=== PATIENT | female | born 1995 | race American Indian/Alaskan Native ===

== ENCOUNTER 2016-05-01 16:59 | Outpatient (CLI) | payer MEDICAID ==
[2016-05-01 18:30] VITALS: BP 103/57
[2016-05-01] MEDS ORDERED: LACTATED RINGERS 1,000 ML IV ONE ×2 (19:16→20:00)
[2016-05-01 19:37] LABS: Bacteria,Urine 2+ /HPF (Negative); Bilirubin,Urine NEG (Negative); Blood,Urine NEG (Negative); Ketones,Urine 20 mg/dL (Negative); Leukocyte Esterase,Urine TR (Negative); Mucus,Urine FEW /HPF; Nitrite,Urine NEG (Negative); Protein,Urine <15 mg/dL mg/dL (Negative)
[2016-05-01 20:01] LABS: Basophils % (Auto) 0.3 % (0.0-1.8); Eosinophils % (Auto) 0.1 % (0.0-4.3); Hematocrit 35.9 % (30.3-42.9); Hemoglobin 11.2 gm/dl (10.1-14.3); Mean Corpuscular HGB Conc 31 % (30-34); Mean Corpuscular Volume 80 fl (79-97); Platelet Count 162 K/mm3 (140-440); Red Blood Count 4.52 M/mm3 (3.65-5.03); Red Cell Distribution Width 15.1 % (13.2-15.2); White Blood Count 8.7 K/mm3 (4.5-11.0)
[2016-05-01 20:02] LABS: Mean Corpuscular Hemoglobin 25 pg (28-32)
== END 2016-05-01 20:40 | disposition home or self-care (01) ==
LOC: TRG 16:59 → LD 17:00 → TRG 20:40
PROVIDERS: ATTEND Obstetrics & Gynecology
DX: O47.02 False labor before 37 completed weeks of gestation, second trimester (principal); Z3A.20 20 weeks gestation of pregnancy
CPT/HCPCS: 36415; 81001; 85025; 96360; J7120; 82962

== ENCOUNTER 2016-08-26 19:18 | Outpatient (CLI) | payer MEDICAID ==
[2016-08-26 19:40] VITALS: BP 102/61
[2016-08-26] MEDS ORDERED: LACTATED RINGERS 1,000 ML ONE (20:15)
[2016-08-26 20:48] LABS: Bilirubin,Urine NEG (Negative); Blood,Urine NEG (Negative); Ketones,Urine NEG (Negative); Leukocyte Esterase,Urine SM (Negative); Mucus,Urine 3+ /HPF; Nitrite,Urine NEG (Negative); Protein,Urine <15 mg/dL mg/dL (Negative); Urobilinogen,Urine < 2.0 mg/dL (<2.0)
[2016-08-26] MEDS ORDERED: LACTATED RINGERS 1,000 ML IV SCH (21:00)
[2016-08-26] MEDS ORDERED: VISTARIL PO ONE (21:25)
== END 2016-08-26 21:28 | disposition home or self-care (01) ==
LOC: TRG 19:18
PROVIDERS: ATTEND Obstetrics & Gynecology
DX: Z34.93 Encounter for supervision of normal pregnancy, unspecified, third trimester (principal); Z3A.37 37 weeks gestation of pregnancy
CPT/HCPCS: 81001; 96360; J7120; Q0177

== ENCOUNTER 2016-09-06 11:25 | Outpatient (CLI) | payer MEDICAID ==
[2016-09-06 11:56] VITALS: BP 110/70
--- NOTE | 2016-09-06 14:00 | Ultrasound Report ---
BIOPHYSICAL PROFILE: 09/06/16 11:25:00 CLINICAL: Well Being FINDINGS: The biophysical profile was scored as followin - breathing movements 2 - movements 2 - posture and tone 2 - Qualitative amniotic fluid volume 8 - TOTAL SCORE OF POSSIBLE 8 Heart Rate (bpm) = 143 IMPRESSION: Normal study
--- NOTE | 2016-09-06 14:01 | Ultrasound Report ---
OB ULTRASOUND LIMITED: 09/06/16 CLINICAL: well being. FINDINGS: Gestation: Zhang Position: Cephalic. Heart Rate: 136 BPM IMPRESSION: Single live intrauterine fetus 38 weeks, 5 daysbased on clinical dating. EDC based on clinical dating is 09/15/16
[2016-09-06] MEDS ORDERED: VISTARIL PO ONE (14:25)
== END 2016-09-06 14:38 | disposition home or self-care (01) ==
LOC: TRG 11:25
PROVIDERS: ATTEND Obstetrics & Gynecology
DX: O47.03 False labor before 37 completed weeks of gestation, third trimester (principal); Z3A.38 38 weeks gestation of pregnancy
CPT/HCPCS: 59025; 76815; 76819; Q0177

== ENCOUNTER 2016-09-09 05:43 | Outpatient (CLI) | payer MEDICAID ==
[2016-09-09] MEDS ORDERED: LACTATED RINGERS 1,000 ML IV ONE (08:00)
[2016-09-09] MEDS ORDERED: STADOL IV PRN (08:00)
[2016-09-09 08:26] LABS: Urine Drugs of Abuse Note Disclamer
[2016-09-09 08:27] VITALS: BP 121/59
== END 2016-09-09 09:33 | disposition home or self-care (01) ==
LOC: TRG 05:43
PROVIDERS: ATTEND Obstetrics & Gynecology
DX: Z34.93 Encounter for supervision of normal pregnancy, unspecified, third trimester (principal); Z3A.39 39 weeks gestation of pregnancy
CPT/HCPCS: 59025; 80307; 96360; 96374; J0595; J7120

== ENCOUNTER 2016-09-09 11:57 | Inpatient (IN) | payer MEDICAID ==
[2016-09-09] MEDS ORDERED: SUBLIMAZE ONE (12:19)
[2016-09-09] MEDS ORDERED: LACTATED RINGERS 1,000 ML ONE ×2 (12:19)
[2016-09-09] MEDS ORDERED: POLYCILLIN/NS 2 GM/100 ML 2 GM/100 ML BAG IV ONE ×2 (12:19→12:41)
[2016-09-09] MEDS ORDERED: ePHEDrine SULFATE IV PRN ×2 (12:41→14:19)
[2016-09-09] MEDS ORDERED: MINERAL OIL PO PRN (12:41)
[2016-09-09] MEDS ORDERED: BRETHINE IVP PRN (12:41)
[2016-09-09] MEDS ORDERED: SUBLIMAZE IV PRN (12:41)
[2016-09-09] MEDS ORDERED: BRETHINE SUB-Q PRN (12:41)
[2016-09-09] MEDS ORDERED: STADOL IV PRN (12:41)
[2016-09-09] MEDS ORDERED: XYLOCAINE 2% INFILTRATI ONE (12:41)
[2016-09-09 12:50] LABS: Hematocrit 38.8 % (30.3-42.9); Hemoglobin 12.6 gm/dl (10.1-14.3); Mean Corpuscular HGB Conc 33 % (30-34); Mean Corpuscular Volume 80 fl (79-97); Platelet Count 262 K/mm3 (140-440); Red Blood Count 4.88 M/mm3 (3.65-5.03); White Blood Count 8.5 K/mm3 (4.5-11.0)
[2016-09-09 12:56] LABS: Mean Corpuscular Hemoglobin 26 pg (28-32)
[2016-09-09] MEDS ORDERED: PITOCin/NS 30 UNIT/500ML 30 UNITS/500 ML BAG IV SCH (13:00)
[2016-09-09] MEDS ORDERED: LACTATED RINGERS 1,000 ML IV SCH (13:00)
[2016-09-09] MEDS ORDERED: PITOCin/NS 20 UNIT/1000ML DRIP 20 UNITS/1,000 ML BAG IV SCH (13:00)
--- NOTE | 2016-09-09 13:14 | History and Physical Report ---
History of Present Illness Date of examination: 09/09/16 Date of admission: 09/09/16 11:57 Chief complaint: labor History of present illness: 21 yo @ 39.2 weeks presented to labor and delivery for active labor. Pt of [facility] since 8 weeks gestation, Course complicated by repeated presentations to triage and office for pain, anemia, and GBS positive. Past History Past Medical History: other (PTSD, depression) Past Surgical History: no surgical history Family/Genetic History: diabetes, hypertension Social history: smoking, full code. denies: prescription drug abuse, IV drug use - Obstetrical History Expected Date of Delivery: 09/14/16 Actual Gestation: 39 Week(s) 2 Day(s) : 1 Para: 0 Hx # Term Pregnancies: 0 Number of Pregnancies: 0 Spontaneous Abortions: 0 Induced : 0 Number of Living Children: 0 Medications and Allergies Allergies Allergy/AdvReac Type Severity Reaction Status Date / Time No Known Allergies Allergy Unverified 08/03/15 08:16 Home Medications Medication Instructions Recorded Confirmed Last Taken Type No Known Home Medications [No 08/03/15 08/03/15 Unknown History Reported Home Medications] Active Meds: Active Medications Butorphanol Tartrate (Stadol) 2 mg IV Q2H PRN PRN Reason: Pain , Severe (7-10) Fentanyl (Sublimaze) 100 mcg IV Q2H PRN PRN Reason: Labor Pain Ampicillin Sodium (Polycillin/Ns 1 Gm/50 Ml) 1 gm in 50 mls @ 100 mls/hr IV Q4HR BELKIS PRN Reason: Protocol Ampicillin Sodium (Polycillin/Ns 2 Gm/100 Ml) 2 gm in 100 mls @ 100 mls/hr IV ONCE ONE PRN Reason: Protocol Stop: 09/09/16 13:40 Lactated Ringer's (Lactated Ringers) 1,000 mls @ 125 mls/hr IV DIRECT BELKIS Oxytocin/Sodium Chloride (Pitocin/Ns 20 Unit/1000ml Drip) 20 units in 1,000 mls @ 125 mls/hr IV DIRECT BELKIS Oxytocin/Sodium Chloride (Pitocin/Ns 30 Unit/500ml) 30 units in 500 mls @ 2 mls /hr IV TITR BELKIS PRN Reason: Protocol Mineral Oil (Mineral Oil) 30 ml PO QHS PRN PRN Reason: Constipation Review of Systems All systems: negative - Vital Signs Vital signs: Vital Signs Temp Resp 98.2 F 16 09/09/16 12:54 09/09/16 12:54 Temp Pulse Resp BP Pulse Ox 98.2 F 16 09/09/16 12:54 09/09/16 12:54 - Physical Exam Cardiovascular: Regular rate Lungs: Positive: Normal air movement Vagina: Positive: normal moisture Uterus: Positive: enlarged Extremities: Positive: normal Deep Tendon Reflex Grade: Normal +2 - Obstetrical FHR: category 1 FHR comments: 135 Uterine Contraction Monitor Mode: External Cervical Dilatation: 4 (in office per SHARON Galeana) Cervical Effacement Percentage: 90 station: -1 Uterine Contraction Pattern: Irregular Uterine Tone Measurement Phase: Resting Uterine Contraction Intensity: Moderate Results Result Diagrams: 09/09/16 12:15 Abnormal lab results 09/09/16 Range/Units 12:15 MCH 26 L (28-32) pg All other labs normal. Assessment and Plan A: IUP @ 39.2 Active labor Category 1 Uncomfortable with contractions GBS positive P: Admit to L&D Pitocin agumentation GBS prophylaxis Epidural as desired
[2016-09-09] MEDS ORDERED: fentaNYL-BUPIV 2 MCG/ML-0.125% 200 MCG/100 ML BAG EPIDURAL ONE (13:17)
[2016-09-09] MEDS ORDERED: NARCAN 2 MG/2 ML IV PRN (14:19)
--- NOTE | 2016-09-09 14:20 | Anesthesia Consultation ---
Anesthesia Consult and Med Hx Date of service: 09/09/16 - Airway Anesthetic Teeth Evaluation: Good ROM Head & Neck: Adequate Mental/Hyoid Distance: Adequate Mallampati Class: Class II Intubation Access Assessment: Good - Pulmonary Exam CTA: Yes - Cardiac Exam Cardiac Exam: No Murmur - Pre-Operative Health Status ASA Pre-Surgery Classification: ASA2 Proposed Anesthetic Plan: Epidural - Pulmonary Hx Asthma: No COPD: No Hx Pneumonia: No - Cardiovascular System Hx Hypertension: No - Central Nervous System Hx Seizures: No Hx Psychiatric Problems: Yes (depression, PTSD) - Endocrine Hx Renal Disease: No Hx End Stage Renal Disease: No Hx Hypothyroidism: No Hx Hyperthyroidism: No - Hematic Hx Anemia: Yes Hx Sickle Cell Disease: No - Other Systems Hx Alcohol Use: No
--- NOTE | 2016-09-09 14:21 | Progress Note ---
Assessment and Plan A: IUP @ 39.2 Active labor Category 1 Comfortable with epidural GBS positive P: Admit to L&D Pitocin agumentation GBS prophylaxis AROM after 2nd dose of ABX Subjective - Subjective Date of service: 09/09/16 Principal diagnosis: Active labor Interval history: 21 yo @ 39.2 weeks presented to labor and delivery for active labor. Pt of [facility] since 8 weeks gestation, Course complicated by repeated presentations to triage and office for pain, anemia, and GBS positive. Objective - Vital Signs Vital Signs: Vital Signs - 12hr 09/09/16 09/09/16 12:25 12:54 Temperature 98.2 F Respiratory 16 16 Rate - Exam Cardiovascular: Regular rate Lungs: Normal air movement FHR: category 1 FHR comments: 125 Uterine Contraction Monitor Mode: External Cervical Dilatation: 4 Cervical Effacement Percentage: 90 station: -1 Uterine Contraction Pattern: Irregular Uterine Tone Measurement Phase: Resting Uterine Contraction Intensity: Moderate - Labs Labs: Abnormal Labs 09/09/16 12:15 MCH 26 L Laboratory Results - last 24 hr 09/09/16 09/09/16 12:15 12:15 WBC 8.5 RBC 4.88 Hgb 12.6 Hct 38.8 MCV 80 MCH 26 L MCHC 33 RDW 15.0 Plt Count 262 Blood Type A POSITIVE Antibody Screen TNR CHARMAINE Antibody Screen Negative - Allied health notes Allied health notes reviewed: nursing
[2016-09-09] MEDS ORDERED: fentaNYL-BUPIV 2 MCG/ML-0.125% 200 MCG/100 ML BAG EPIDURAL SCH (15:00)
[2016-09-09] MEDS ORDERED: POLYCILLIN/NS 1 GM/50 ML 1 GM/50 ML BAG IV SCH (16:43)
--- NOTE | 2016-09-09 16:54 | Procedure Note ---
OB Delivery Note - Delivery Date of Delivery: 09/09/16 Surgeon: MINDI MUNSON Estimated blood loss: 300cc - Vaginal Delivery position: OA Intrapartum events: meconium, mult.variable deceleratio Delivery augmentation: rupture of membranes, pitocin Delivery monitor: external FHT, external uterine Delivery placenta: spontaneous Delivery cord: nuchal cord Delivery laceration: other (bilateral labial) Anesthesia: epidural Delivery comments: Baby aziza Hastings was delivered on 09/09/2016 at 1637 over intact perineum with bilateral approximated labial tears. NICU at delivery for mecomium fluids. Cord was immediately clamped and cut and baby was passed over to NICU team. Placenta delivered dukes side presenting. Baby weighed 6 lbs 7 oz with apgars of 8/9. Fundas firm, midline and 2 cm below umbilicus. EBL 300mL. Mom and baby doing well. - Infant A at 1 minute: 8 at 5 minutes: 9 Gender: Male
[2016-09-09] MEDS ORDERED: LANSINOH TP PRN (16:56)
[2016-09-09] MEDS ORDERED: MILK OF MAGNESIA PO PRN (16:56)
[2016-09-09] MEDS ORDERED: BENADRYL PO PRN (16:56)
[2016-09-09] MEDS ORDERED: DULCOLAX PR PRN (16:56)
[2016-09-09] MEDS ORDERED: TYLENOL PO PRN (16:56)
[2016-09-09] MEDS ORDERED: TUCKS PAD TP PRN (16:56)
[2016-09-09] MEDS ORDERED: SODIUM CHLORIDE FLUSH SYRINGE 10 ML IV SCH (17:00)
[2016-09-09] MEDS: MOTRIN PO SCH (18:34)
[2016-09-09] MEDS ORDERED: ZOFRAN PO PRN (21:03)
[2016-09-09] MEDS: NORCO 5/325 PO PRN (22:09)
[2016-09-10 05:10] LABS: Hemoglobin 10.5 gm/dl (10.1-14.3)
[2016-09-10] MEDS: NORCO 5/325 PO PRN ×3 (05:51→18:10)
[2016-09-10] MEDS: MOTRIN PO SCH ×3 (05:52→13:10)
--- NOTE | 2016-09-10 10:15 | Progress Note ---
Assessment and Plan A: PPD 1 VSS P: Routine care D/C today if baby released. Depo for contraception then mirena Subjective - Subjective Date of service: 09/10/16 Principal diagnosis: PPD1 Interval history: 21 yo @ 39.2 weeks presented to labor and delivery for active labor. Pt of [facility] since 8 weeks gestation, Course complicated by repeated presentations to triage and office for pain, anemia, and GBS positive. Patient reports: appetite normal, voiding normally, pain well controlled, ambulating normally Barron: doing well Objective - Vital Signs Latest vital signs: Vital Signs Temp Pulse Resp BP 09/10/16 04:30 98.4 F 61 18 108/60 09/10/16 00:00 98.2 F 65 18 130/64 09/09/16 18:05 97.6 F 64 18 130/56 09/09/16 17:21 98.6 F 18 09/09/16 12:54 98.2 F 16 09/09/16 12:25 16 Intake and Output 09/09/16 09/10/16 09/10/16 22:59 06:59 14:59 Intake Total 120 Output Total 800 300 Balance -680 -300 Intake: Oral 120 Output: Urine 800 300 Indwelling Catheter 800 Void 300 Other: Total, Intake Amount 120 Total, Output Amount 800 300 Estimated Blood Loss 300 - Exam Cardiovascular: Present: Regular rate Lungs: Present: Normal air movement Vulva: both: normal (scant lochia) Uterus: Present: fundal height below umbilicus Extremities: Present: normal Deep Tendon Reflex Grade: Normal +2 - Labs Labs: Abnormal lab results 09/09/16 Range/Units 12:15 MCH 26 L (28-32) pg
--- NOTE | 2016-09-10 10:16 | Discharge Summary ---
Providers - Providers Date of Admission: 09/09/16 11:57 Date of discharge: 09/10/16 Attending physician: ELLIOT SANTIAGO MD Primary care physician: ELLIOT SANTIAGO MD Hospitalization Reason for admission: active labor Delivery: Laceration: none Other procedures: none complications: none Discharge diagnosis: IUP at term delivered baby: male Hospital course: uneventful Condition at discharge: Good Disposition: DC-01 TO HOME OR SELFCARE Plan - Provider Discharge Summary Activity: routine, no sex for 6 weeks, no heavy lifting 4 weeks, no strenuous exercise Diet: routine Instructions: routine Additional instructions: [] Smoking cessation referral if applicable(refer to patient education folder for contact #) [] Refer to [facility]'s [facility] Booklet Call your doctor immediately for: * Fever > 100.5 * Heavy vaginal bleeding ( >1 pad per hour) * Severe persistent headache * Shortness of breath * Reddened, hot, painful area to leg or breast * Drainage or odor from incision. * Keep incision clean and dry at all times and follow doctor's instructions regarding bathing/showering - Follow up plan Follow up: [facility] [Provider Group] - 6 Weeks
[2016-09-10] MEDS ORDERED: DEPO-PROVERA (CONTRACEPTION) IM NR ×2 (10:30→19:00)
[2016-09-10 19:22] VITALS: BP 131/70
== END 2016-09-10 19:20 | disposition home or self-care (01) | DRG 775 ==
LOC: LD 11:57 → OB 17:57
PROVIDERS: ADMIT Obstetrics & Gynecology; ATTEND Obstetrics & Gynecology
PROC: 10E0XZZ Delivery of Products of Conception, External Approach (ICD-10-PCS; principal; 2016-09-09)
PROC: 00HU33Z Insertion of Infusion Device into Spinal Canal, Percutaneous Approach (ICD-10-PCS; 2016-09-09)
PROC: 3E0R3CZ (ICD-10-PCS; 2016-09-09)
DX: O77.0 Labor and delivery complicated by meconium in amniotic fluid (principal); O76 Abnormality in fetal heart rate and rhythm complicating labor and delivery; O99.02 Anemia complicating childbirth; D64.9 Anemia, unspecified; O99.344 Other mental disorders complicating childbirth; F32.9 Major depressive disorder, single episode, unspecified; O69.81X0 Labor and delivery complicated by cord around neck, without compression, not applicable or unspecified; O70.0 First degree perineal laceration during delivery; O99.824 Streptococcus B carrier state complicating childbirth; Z3A.39 39 weeks gestation of pregnancy; Z37.0 Single live birth
CPT/HCPCS: 36415; 85014; 85018; 85027; 86850; 86900; 86901; 99211; A6250; G0463; J0290; J1050; J2590; J3010; J7120; Q0162

== ENCOUNTER 2020-05-09 14:00 | Emergency (ER) | payer SELFPAY ==
[2020-05-09 14:11] VITALS: BP 132/84
--- NOTE | 2020-05-09 14:30 | Event Note ---
ED Screening Note Date of service: 05/09/20 Time: 14:28 ED Screening Note: Patient presents stating she is here to speak with the renal social worker about her mental health issues History of bipolar and PTSD per patient Denies SI/HI Patient states [place] Patient is very agitated This initial assessment/diagnostic orders/clinical plan/treatment(s) is/are subject to change based on patients health status, clinical progression and re- assessment by fellow clinical providers in the ED. Further treatment and workup at subsequent clinical providers discretion. Patient/guardian urged not to elope from the ED as their condition may be serious if not clinically assessed and managed. Initial orders include: main ed
--- NOTE | 2020-05-09 15:12 | Emergency Department Report ---
ED General Adult HPI - General Chief complaint: Medical Clearance Stated complaint: MH MEDICATION REFILL/ALLERGIES Time Seen by Provider: 05/09/20 14:28 Source: patient Mode of arrival: Ambulatory Limitations: No Limitations - History of Present Illness Initial comments: This is a pleasant 24-year-old female presents the emergency department chief complaint that she is out of her Zoloft and unable to afford these medications at this time. She is requesting to see a waybill clerk due to housing issues. She denies any suicidal thoughts, homicidal thoughts, auditory visual hallucinations, fever, chills, night sweats, headache, dizziness, blurry vision, nausea, vomiting, diarrhea, chest pain, shortness of breath, weakness or any other associated symptoms. Severity scale (0 -10): 0 - Related Data Previous Rx's Medication Instructions Recorded Last Taken Type Sertraline [Zoloft] 25 mg PO QDAY #30 tab 05/09/20 Unknown Rx Allergies Allergy/AdvReac Type Severity Reaction Status Date / Time No Known Allergies Allergy Verified 05/09/20 14:09 ED Review of Systems ROS: Stated complaint: MH MEDICATION REFILL/ALLERGIES Other details as noted in HPI Comment: All other systems reviewed and negative Constitutional: denies: chills, fever Eyes: denies: eye pain, eye discharge, vision change ENT: denies: ear pain, throat pain Respiratory: denies: cough, shortness of breath, wheezing Cardiovascular: denies: chest pain, palpitations Endocrine: no symptoms reported Gastrointestinal: denies: abdominal pain, nausea, diarrhea Genitourinary: denies: urgency, dysuria, discharge Musculoskeletal: denies: back pain, joint swelling, arthralgia Skin: denies: rash, lesions Neurological: denies: headache, weakness, paresthesias Psychiatric: denies: anxiety, depression Hematological/Lymphatic: denies: easy bleeding, easy bruising ED Past Medical Hx - Past Medical History Hx Hypertension: No Hx Congestive Heart Failure: No Hx Diabetes: No Hx Deep Vein Thrombosis: No Hx Renal Disease: No Hx Sickle Cell Disease: No Hx Seizures: No Hx Psychiatric Treatment: Yes (ANIXETY) Hx Asthma: No Hx COPD: No Hx HIV: No Additional medical history: PTSD - Social History Smoking Status: Never Smoker - Medications Home Medications: Home Medications Medication Instructions Recorded Confirmed Last Taken Type Sertraline [Zoloft] 25 mg PO QDAY #30 tab 05/09/20 Unknown Rx ED Physical Exam - General Limitations: No Limitations General appearance: alert, in no apparent distress - Head Head exam: Present: atraumatic, normocephalic - Eye Eye exam: Present: normal appearance, PERRL, EOMI Pupils: Present: normal accommodation - ENT ENT exam: Present: normal exam, normal orophraynx, mucous membranes moist - Neck Neck exam: Present: normal inspection. Absent: tenderness, meningismus - Respiratory Respiratory exam: Present: normal lung sounds bilaterally. Absent: respiratory distress, wheezes, rales, rhonchi, stridor - Cardiovascular Cardiovascular Exam: Present: regular rate, normal rhythm, normal heart sounds. Absent: systolic murmur, diastolic murmur, rubs, gallop - GI/Abdominal GI/Abdominal exam: Present: soft, normal bowel sounds. Absent: distended, tenderness, guarding, rebound, rigid - Extremities Exam Extremities exam: Present: normal inspection, full ROM, normal capillary refill. Absent: tenderness - Back Exam Back exam: Present: normal inspection, full ROM. Absent: tenderness, CVA tenderness (R), CVA tenderness (L) - Neurological Exam Neurological exam: Present: alert, oriented X3, CN II-XII intact, normal gait - Psychiatric Psychiatric exam: Present: normal affect, normal mood - Skin Skin exam: Present: warm, dry, intact, normal color. Absent: rash ED Course Vital Signs 05/09/20 14:10 Temperature 98.1 F Pulse Rate 63 Respiratory 20 Rate Blood Pressure 132/84 [Right] O2 Sat by Pulse 100 Oximetry ED Medical Decision Making - Medical Decision Making Patient nontoxic in no acute distress. Vitals are stable. She denies SI, HI, audio or visual hallucinations. I will refill the patient's Zoloft and we did consult with the waybill clerk who will come and see the patient to assess her needs. At this time the patient is in no distress and comfortable this plan all of her questions were answered she will be discharged in stable condition home with no further concerns at this time. - Differential Diagnosis Anxiety, depression, PTSD, bipolar Critical care attestation.: If time is entered above; I have spent that time in minutes in the direct care of this critically ill patient, excluding procedure time. ED Disposition Clinical Impression: PTSD (post-traumatic stress disorder) Disposition: DC- TO HOME OR SELFCARE Is pt being admited?: No Condition: Stable Instructions: Managing Post-Traumatic Stress Disorder Prescriptions: Sertraline [Zoloft] 25 mg PO QDAY #30 tab Referrals: PRIMARY CARE, [Primary Care Provider] - 3-5 Days [facility] [Provider Group] - 3-5 Days SARAH MAYES MD [Staff Physician] - 3-5 Days SHANIA LAMBERT NP [Staff Physician] - 3-5 Days RAMÍREZ SHARP MD [Staff Physician] - 3-5 Days Time of Disposition: 15:13
== END 2020-05-09 16:09 | disposition home or self-care (01) ==
LOC: ED 14:00
DX: F43.10 Post-traumatic stress disorder, unspecified (principal); F41.9 Anxiety disorder, unspecified; Z76.0 Encounter for issue of repeat prescription; Z79.899 Other long term (current) drug therapy
CPT/HCPCS: 99282